=== PATIENT | female | born 1970 | race Caucasian/White ===

== ENCOUNTER 2022-03-07 08:56 | Emergency (ER) | payer BC, SELFPAY ==
[2022-03-07 09:02] VITALS: BP 128/68; PULSE 80; RESP 14; TEMP 37.2; O2SAT 100
--- NOTE | 2022-03-07 09:15 | ED.URI ---
HPI - URI/Sore Throat General Chief Complaint: Upper Respiratory Infection Stated Complaint: Drainage, sore throat Time Seen by Provider: 03/07/22 09:12 Source: patient, RN notes reviewed and old records reviewed Mode of arrival: ambulatory Limitations: no limitations History of Present Illness HPI Narrative: 51-year-old female who presents to [facility] care with complaints of coughing up yellowish phlegm,sinus congestion with drainage chills and body aches with sore throat since Sunday.Patient reports that her daughter has also been ill with same symptoms and was tested for strep and COVID which were negative. Patient reports that she has had COVID vaccinations and also flu shot. Patient has history of asthma and previous history of strep throat. She has been taking Ibuprofen for her symptoms. MD elicited complaint: cough, sore throat, rhinorrhea, nasal congestion and other (body aches and chills) Pertinent past history: asthma Onset (ago): day(s) (3rd day of symptoms) Pain scale (0-10): 8 Description of mucous: yellow Able to tolerate fluids by mouth: Yes Treatments prior to arrival: ibuprofen Related Data Home Medications Medication Instructions Recorded Confirmed esomeprazole magnesium 40 mg mg 03/07/22 capsule,delayed release levalbuterol tartrate 45 inhalation 03/07/22 mcg/actuation aerosol inhaler levothyroxine 125 mcg tablet mcg 03/07/22 montelukast 10 mg tablet mg 03/07/22 nebivolol 5 mg tablet mg 03/07/22 Allergies Allergy/AdvReac Type Severity Reaction Status Date / Time codeine Allergy Mild nausea Verified 10/11/12 18:40 Sulfa (Sulfonamide Allergy Mild rash Verified 10/11/12 18:40 Antibiotics) cefdinir AdvReac GI upset Verified 04/29/12 18:15 AMOXICILLIN TRIHYDRATE Allergy Mild nausea Uncoded 10/11/12 18:40 POTASSIUM CLAVULANATE Allergy Mild nausea Uncoded 10/11/12 18:40 Review of Systems Review of Systems: CONSTITUTIONAL: Denies known fever, positive chills, no sweats. EYES: Denies visual changes, redness, or discharge. ENT: positive rhinorrhea, congestion, sore throat, no otalgia. CARDIOVASCULAR: Denies chest pain, palpitations, or edema. RESPIRATORY: Positive cough negative dyspnea. GASTROINTESTINAL: Denies abdominal pain, nausea, vomiting, or diarrhea. GENITOURINARY: Denies dysuria or hematuria. SKIN: Denies rash or itching. MUSCULOSKELETAL: Denies back pain, joint pain,positive body aches NEUROLOGIC: Denies headache, numbness, or weakness. PSYCHIATRIC: Denies anxiety or depression. All systems reviewed & are unremarkable except as noted in HPI and below PMFSH Past Medical History Medical History (Updated 03/07/22 @ 10:11 by Gladys Ramirez NP) Asthma GERD (gastroesophageal reflux disease) Hx of migraines Hypertension Hypothyroidism Surgical History Surgical History (Updated 03/07/22 @ 10:11 by Gladys Ramirez NP) H/O thyroidectomy cancer History of cholecystectomy History of salpingectomy right related to tubal Previous section x2 Social History Social History (Updated 03/07/22 @ 09:46 by Gladys Ramirez NP) Smoking status: Never smoker Alcohol intake: current Alcohol use details: social Substance use type: does not use Living arrangements: with family Gender identity (if verbalized by the patient): Female Comments At time of signature, agree with nursing past medical, surgical, social and family history. There is no relevant family history pertinent to the presenting complaint Exam Narrative: GENERAL: Well-appearing, well-nourished, and in no acute distress. HEAD: Normocephalic, atraumatic. EYES: PERRLA and EOMI. ENT: Nares red, yellow rhinorrhea no epistaxis. Mucous membranes moist.TM's normal with good light reflex, throat red no lesions or exudates no tonsils present. NECK: Supple. No lymphadenopathy CHEST: Clear to auscultation. No respiratory distress. SaO2 100% on room air, cough noted HEART: Regular rate and rhyt
== END 2022-03-07 10:10 | disposition home or self-care (01) ==
PROVIDERS: Emergency Provider Registered Nurse; PCP Internal Medicine
DX: J32.9 Chronic sinusitis, unspecified (principal); J02.9 Acute pharyngitis, unspecified; Z20.822 Contact with and (suspected) exposure to COVID-19; J45.909 Unspecified asthma, uncomplicated; K21.9 Gastro-esophageal reflux disease without esophagitis; I10 Essential (primary) hypertension; E03.9 Hypothyroidism, unspecified
CPT/HCPCS: 87081; 87426; 87880; 99203; C9803; G0463

== ENCOUNTER 2022-08-22 13:20 | Emergency (ER) | payer BC, SELFPAY ==
[2022-08-22 13:32] VITALS: BP 110/68; PULSE 82; RESP 16; TEMP 36.6; O2SAT 100
--- NOTE | 2022-08-22 14:12 | ED.SKABFB ---
HPI - Skin/Abscess/Foreign Bdy General Chief complaint: Skin/Abscess/Foreign Body Stated complaint: Rash Time Seen by Provider: 08/22/22 14:12 Source: patient, RN notes reviewed and old records reviewed Mode of arrival: ambulatory Limitations: no limitations History of Present Illness HPI narrative: 52 year old female who presents to [facility] care with complaints of rash yesterday after wearing new sweater that she did not wash first. patient reports that she has red raised itchy rash on her arms, neck, back, and upper chest. Patient reports history of skin sensitivity and allergies with history of asthma, denies any acute shortness of breath or any difficulty with swallowing. Has used her inhaler and has taken her Singulair as usual. MD complaint: rash Onset (ago): day(s) (last night worse today) Treatments prior to arrival: other (singulair) Related Data Home Medications Medication Instructions Recorded Confirmed esomeprazole magnesium 40 mg mg 03/07/22 capsule,delayed release levalbuterol tartrate 45 inhalation 03/07/22 mcg/actuation aerosol inhaler levothyroxine 125 mcg tablet mcg 03/07/22 montelukast 10 mg tablet mg 03/07/22 nebivolol 5 mg tablet mg 03/07/22 Allergies Allergy/AdvReac Type Severity Reaction Status Date / Time codeine Allergy Mild nausea Verified 08/22/22 13:32 Sulfa (Sulfonamide Allergy Mild rash Verified 08/22/22 13:32 Antibiotics) cefdinir AdvReac GI upset Verified 08/22/22 13:32 AMOXICILLIN TRIHYDRATE Allergy Mild nausea Uncoded 10/11/12 18:40 POTASSIUM CLAVULANATE Allergy Mild nausea Uncoded 10/11/12 18:40 Review of Systems Review of Systems: CONSTITUTIONAL: Denies fever, chills, or sweats. CARDIOVASCULAR: Denies chest pain, palpitations, or edema. RESPIRATORY: Denies cough or dyspnea. SKIN: Reports itchy red scattered rash on upper chest, back, neck, and arms which is itchy after wearing a sweater yesterday that had not been washed first. MUSCULOSKELETAL: Denies joint pain or myalgia. NEUROLOGIC: Denies headache, numbness, or weakness. All systems reviewed & are unremarkable except as noted in HPI and below PMFSH Past Medical History Medical History Asthma GERD (gastroesophageal reflux disease) Hx of migraines Hypertension Hypothyroidism Surgical History Surgical History H/O thyroidectomy cancer History of cholecystectomy History of salpingectomy right related to tubal Previous section x2 Social History Social History Smoking status: Never smoker Alcohol intake: current Alcohol use details: social Substance use type: does not use Living arrangements: with family Gender identity (if verbalized by the patient): Female Comments At time of signature, agree with nursing past medical, surgical, social and family history. There is no relevant family history pertinent to the presenting complaint Exam Narrative: GENERAL: Well-appearing, well-nourished, and in no acute distress. HEAD: Normocephalic, atraumatic. EYES: PERRLA, conjunctivae clear, and EOMI. ENT: Mucous membranes moist. Oropharynx without edema, erythema or lesions. NECK: Supple. No lymphadenopathy CHEST: Clear to auscultation. No respiratory distress.SAO2 100% on room air HEART: Regular rate and rhythm. SKIN: Warm, dry.? Patches of scattered red raised rash with itching to back, arms,, neck, upper chest NEURO:? Alert and oriented x3. PSYCH: Normal mood and affect Course Course Emergency Course: Patient is aware of diagnosis, understands and agrees to treatment plan.? Anticipatory guidance given.? Patient agrees to follow-up as directed and is aware of reasons to seek care at the emergency department. Portions of this record may have been created with voice recognition software Level
== END 2022-08-22 14:30 | disposition home or self-care (01) ==
PROVIDERS: Emergency Provider Registered Nurse; PCP Internal Medicine
DX: L23.5 Allergic contact dermatitis due to other chemical products (principal); J45.909 Unspecified asthma, uncomplicated; K21.9 Gastro-esophageal reflux disease without esophagitis; I10 Essential (primary) hypertension; E03.9 Hypothyroidism, unspecified
CPT/HCPCS: 99213; G0463

== ENCOUNTER 2023-05-14 11:13 | Emergency (ER) | payer BC, SELFPAY ==
--- NOTE | ~2023-05-14 | XR_ITS ---
EXAMINATION: XR foot RT min 3V DATE: 05/14/2023 11:47 INDICATION: Right foot injury. TECHNIQUE: 4 views of right foot were obtained. COMPARISON: None. FINDINGS: Bone alignment is normal. No fracture. Joint spaces are normal. IMPRESSION: 1. Normal right foot. Reviewed, dictated and finalized at location A. ER IMPRESSION: 1. Normal right foot.
[2023-05-14 11:20] VITALS: BP 124/80; PULSE 78; RESP 20; TEMP 36.9; O2SAT 100
--- NOTE | 2023-05-14 11:28 | ED.LOWEXIN ---
HPI - Extremity Injury (Lower) General Chief Complaint: Extremity Injury, Lower Stated Complaint: Right Foot/Toe Injury Time Seen by Provider: 05/14/23 11:33 Source: patient and RN notes reviewed Mode of arrival: ambulatory Limitations: no limitations History of Present Illness HPI Narrative: 52-year-old female presents concern for injury to her right foot. Reports overnight she stubbed the foot on her bed post causing pain to the 5th digit and proximal to the 5th digit. She reports she has been taking Motrin around the clock with minimal relief. She reports mild pain at rest, worsening pain with weight-bearing MD complaint: foot injury Related Data Home Medications Medication Instructions Recorded Confirmed esomeprazole magnesium 40 mg mg 03/07/22 capsule,delayed release levalbuterol tartrate 45 inhalation 03/07/22 mcg/actuation aerosol inhaler levothyroxine 125 mcg tablet mcg 03/07/22 montelukast 10 mg tablet mg 03/07/22 nebivolol 5 mg tablet mg 03/07/22 Allergies Allergy/AdvReac Type Severity Reaction Status Date / Time codeine Allergy Mild nausea Verified 08/22/22 13:32 Sulfa (Sulfonamide Allergy Mild rash Verified 08/22/22 13:32 Antibiotics) cefdinir AdvReac GI upset Verified 08/22/22 13:32 AMOXICILLIN TRIHYDRATE Allergy Mild nausea Uncoded 10/11/12 18:40 POTASSIUM CLAVULANATE Allergy Mild nausea Uncoded 10/11/12 18:40 Review of Systems Review of Systems: CONSTITUTIONAL: Denies malaise, chills, sweats, or fever. SKIN: Denies rash or itching, open skin, laceration, abrasion, redness, warmth, swelling. MUSCULOSKELETAL: Reports pain to the 5th digit and proximal to the 5th digit of the right foot NEUROLOGIC: Denies numbness, weakness All systems reviewed & are unremarkable except as noted in HPI and below PMFSH Past Medical History Medical History Asthma GERD (gastroesophageal reflux disease) Hx of migraines Hypertension Hypothyroidism Surgical History Surgical History H/O thyroidectomy cancer History of cholecystectomy History of salpingectomy right related to tubal Previous section x2 Social History Social History Smoking status: Never smoker Alcohol intake: current Alcohol use details: social Substance use type: does not use Living arrangements: with family Gender identity (if verbalized by the patient): Female Comments At time of signature, agree with nursing past medical, surgical, social and family history. There is no relevant family history pertinent to the presenting complaint Exam Narrative: GENERAL: Well-appearing, well-nourished, and in no acute distress. HEAD: Normocephalic, atraumatic. EYES: PERRLA, conjunctivae clear NECK: Supple. CHEST: Speaks in full sentences. No respiratory distress. HEART: Regular rate and rhythm. Normal and equal peripheral pulses. EXTREMITIES: Right foot and digits have grossly normal strength and sensation, grossly normal range of motion. No edema or ecchymosis.Normal sensation with sensitivity to light touch and pain. No point tenderness. No open wounds, no skin tenting, no devitalized tissue or atrophy, no trophic changes, no obvious deformity, alignment normal, nearby joints and structures intact. Distal pulses palpable and equal bilaterally, skin warm, dry, pink. Capillary refill less than 3 seconds. SKIN: Warm, dry, no rash. NEURO: Alert and oriented x3. PSYCH: Normal mood and affect Course Course Emergency Course: Patient is aware of diagnosis, understands and agrees to treatment plan. Anticipatory guidance given. Patient agrees to follow-up as directed and is aware of reasons to seek care at the emergency department. Portions of this record may have been created with voice recognition software Level of Care: Express Care
== END 2023-05-14 11:58 | disposition home or self-care (01) ==
PROVIDERS: Emergency Provider Nurse Practitioner; PCP Internal Medicine
DX: M79.671 Pain in right foot (principal); J45.909 Unspecified asthma, uncomplicated; K21.9 Gastro-esophageal reflux disease without esophagitis; I10 Essential (primary) hypertension; E03.9 Hypothyroidism, unspecified
CPT/HCPCS: 73630; 99213; G0463